=== PATIENT | male | born 1965 | race Caucasian/White ===

== ENCOUNTER 2020-09-11 18:27 | Emergency (ER) | payer MEDICAID ==
[2020-09-11] MEDS ORDERED: Sodium Chloride 0.9% 10 ML Syringe FLUSH PRN (18:45)
--- NOTE | 2020-09-11 19:21 | EDM.PDOC ---
ED HPI GENERAL MEDICAL PROBLEM - General Chief Complaint: Upper Extremity Injury/Pain Stated Complaint: RIGHT ARM PAIN Time Seen by Provider: 09/11/20 18:43 Source of Information: Reports: Patient History Limitations: Reports: No Limitations - History of Present Illness INITIAL COMMENTS - FREE TEXT/NARRATIVE: Alexander is a 55-year-old male presenting to the ED for evaluation of possible right bicep tear. Patient is a salazar and was lifting heavy items today when suddenly he had a feeling of tearing sensation and weakness in his right upper extremity with a bulge in his right bicep. 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 Denies any pain. There is a noticeable bulge in the middle of his bicep and deficit in the distal portion of the bicep. He denies any numbness or tingling. He does have noticeable weakness in this arm compared to the left. - Related Data Allergies Allergy/AdvReac Type Severity Reaction Status Date / Time No Known Allergies Allergy Verified 09/11/20 18:39 Home Meds: Home Meds Allopurinol [Zyloprim] 100 mg PO DAILY 09/11/20 [History] Cholecalciferol (Vitamin D3) [Vitamin D] 5,000 unit PO WEEKLY 09/11/20 [History] Diltiazem [Diltiazem XR] 360 mg PO DAILY 09/11/20 [History] Simvastatin 80 mg PO DAILY 09/11/20 [History] cloNIDine [cloNIDine HCl] 0.5 mg PO BID 09/11/20 [History] hydroCHLOROthiazide [Hydrochlorothiazide] 12.5 mg PO DAILY 09/11/20 [History] lisinopriL [Lisinopril] 20 mg PO WEEKLY 09/11/20 [History] traZODone 50 mg PO BEDTIME 09/11/20 [History] Past Medical History HEENT History: Reports: Impaired Vision Cardiovascular History: Reports: High Cholesterol, Hypertension Respiratory History: Reports: Sleep Apnea Musculoskeletal History: Reports: Arthritis, Back Pain, Chronic, Gout Neurological History: Reports: Concussion Endocrine/Metabolic History: Reports: Obesity/BMI 30+ - Infectious Disease History Infectious Disease History: Reports: Chicken Pox - Past Surgical History Head Surgeries/Procedures: Reports: None HEENT Surgical History: Reports: None Cardiovascular Surgical History: Reports: None Respiratory Surgical History: Reports: None Endocrine Surgical History: Reports: None Neurological Surgical History: Reports: None Musculoskeletal Surgical History: Reports: Knee Replacement, Other (See Below) Dermatological Surgical History: Reports: None Social & Family History - Tobacco Use Tobacco Use Status *Q: Current Every Day Tobacco User Years of Tobacco use: 30 Packs/Tins Daily: 0.5 Used Tobacco, but Quit: No - Caffeine Use Caffeine Use: Reports: Soda - Recreational Drug Use Recreational Drug Use: No Review of Systems - Review of Systems Review Of Systems: See Below Constitutional: Reports: No Symptoms Respiratory: Reports: No Symptoms Cardiovascular: Reports: No Symptoms GI/Abdominal: Reports: No Symptoms Musculoskeletal: Reports: Other (dB bulge in the right biceps with a deficit of the distal bicep and subjective weakness in the right arm.) Skin: Reports: No Symptoms Neurological: Reports: No Symptoms Psychiatric: Reports: No Symptoms ED EXAM, GENERAL - Physical Exam Exam: See Below Exam Limited By: No Limitations General Appearance: Alert, No Apparent Distress Neck: Normal Inspection, Supple, Non-Tender Peripheral Pulses: 2+: Radial (L), Radial (R) Extremities: Other (Noticeable bulge in the upper half of the bicep with a deficit in the lower half of the biceps on the right noticeable weakness in the right versus left upper extremity.) Neurological: Alert, Oriented, Normal Cognition, Sensory/Motor Deficit (Noticeable weakness in the right upper extremity compared to the left with flexion of the bicep) Skin Exam: Warm, Dry, Intact, Normal Color Course - Vital Signs Last Recorded V/S: Last Vital Signs Temp 36.7 C 09/11/20 18:47 Pulse 92 09/11/20 18:47 Resp 16 09/11/20 18:47 BP 160/106 H 09/11/20 18:47 Pulse Ox 94 L 09/11/20 18:47 - Orders/Labs/Meds Orders: Active Orders 24 hr Category Date Time Status Consult to Orthopedic Clinic [CONS] Routine Cons 09/11/20 19:45 Ordered Upper Extremity w Cont Rt [CT] Stat Exams 09/11/20 18:44 Stop Req Iopamidol [Isovue-300 (61%)] Med 09/11/20 19:45 Active 100 ml IV . DIRECTED Sodium Chloride 0.9% [Normal Saline] 80 ml Med 09/11/20 19:45 Active IV ASDIRECTED Sodium Chloride 0.9% [Saline Flush] Med 09/11/20 18:45 Active 10 ml FLUSH ASDIRECTED PRN Saline Lock Insert [OM.PC] Routine Oth 09/11/20 18:45 Ordered Medication Orders Sodium Chloride (Normal Saline) 80 mls @ 3 mls/sec IV ASDIRECTED RADHA Iopamidol (Iopamidol 612 Mg/Ml 100 Ml Bottle) 100 ml IV . DIRECTED RADHA Sodium Chloride (Sodium Chloride 0.9% 10 Ml Syringe) 10 ml FLUSH ASDIRECTED PRN PRN Reason: Keep Vein Open Last Admin: 09/11/20 18:56 Dose: 10 ml Documented by: MARJORIE Lynchs: Medications Generic Name Dose Route Start Last Admin Trade Name Freq PRN Reason Stop Dose Admin Sodium Chloride 80 mls @ 3 mls/sec 09/11/20 19:45 Normal Saline IV ASDIRECTED RADHA Iopamidol 100 ml 09/11/20 19:45 Iopamidol 612 Mg/Ml 100 Ml Bottle IV . DIRECTED RADHA Sodium Chloride 10 ml 09/11/20 18:45 09/11/20 18:56 Sodium Chloride 0.9% 10 Ml Syringe FLUSH 10 ml ASDIRECTED PRN Administration Keep Vein Open - Re-Assessments/Exams Free Text/Narrative Re-Assessment/Exam: 09/11/20 19:47 discussed the case with orthopedic surgery coverage, PEREZ Garcia who recommends MRI of the upper extremity which could be done on Wednesday. She will see the patient hopefully in clinic tomorrow to arrange the MRI and follow-up. We will put the patient in a simple sling with instructions to avoid use of the right arm until the evaluation is completed. Patient may take Tylenol for pain control. Consult orthopedic clinic has been placed. Departure - Departure Time of Disposition: 19:48 Disposition: Home, Self-Care 01 Clinical Impression: Traumatic partial tear of right biceps tendon Qualifiers: Encounter type: initial encounter Qualified Code(s): S46.211A - Strain of muscle, fascia and tendon of other parts of biceps, right arm, initial encounter - Discharge Information Referrals: Jr Phan D[facility] CUTTER [Primary Care Provider] - Forms: ED Department Discharge Care Plan Goals: Based on my examination today, you likely have a partial bicep tendon tear involving your right upper extremity. I discussed the case with orthopedic surgery who would see you in clinic tomorrow and schedule you for an MRI Wednesday. You will likely be scheduled for surgery early next week for repair of this if in fact that is what is going on. We are going to put you in a simple sling to rest the arm. Please avoid any lifting with the arm. You may take Tylenol or ibuprofen for pain control. Sepsis Event Note (ED) - Evaluation Sepsis Screening Result: No Definite Risk - Focused Exam Vital Signs: Vital Signs Temp Pulse Resp BP Pulse Ox 09/11/20 18:47 36.7 C 92 16 160/106 H 94 L 09/11/20 18:39 36.7 C 92 16 160/106 H 94 L - Problem List & Annotations (1) Traumatic partial tear of right biceps tendon SNOMED Code(s): 033062633 Code(s): S46.211A - STRAIN OF MUSC/FASC/TEND PRT BICEPS, RIGHT ARM, INIT Status: Acute Priority: Medium Current Visit: Yes Qualifiers: Encounter type: initial encounter Qualified Code(s): S46.211A - Strain of muscle, fascia and tendon of other parts of biceps, right arm, initial encounter - Problem List Review Problem List Initiated/Reviewed/Updated: Yes - My Orders Last 24 Hours: My Active Orders 09/11/20 18:44 Upper Extremity w Cont Rt [CT] Stat 09/11/20 18:45 Sodium Chloride 0.9% [Saline Flush] 10 ml FLUSH ASDIRECTED PRN Saline Lock Insert [OM.PC] Routine 09/11/20 19:45 Consult to Orthopedic Clinic [CONS] Routine Iopamidol [Isovue-300 (61%)] 100 ml IV . DIRECTED Sodium Chloride 0.9% [Normal Saline] 80 ml IV ASDIRECTED - Assessment/Plan Last 24 Hours: My Active Orders 09/11/20 18:44 Upper Extremity w Cont Rt [CT] Stat 09/11/20 18:45 Sodium Chloride 0.9% [Saline Flush] 10 ml FLUSH ASDIRECTED PRN Saline Lock Insert [OM.PC] Routine 09/11/20 19:45 Consult to Orthopedic Clinic [CONS] Routine Iopamidol [Isovue-300 (61%)] 100 ml IV . DIRECTED Sodium Chloride 0.9% [Normal Saline] 80 ml IV ASDIRECTED
[2020-09-11] MEDS ORDERED: Iopamidol 612 MG/ML 100 ML Bottle IV SCH (19:45)
[2020-09-11] MEDS ORDERED: Sodium Chloride 0.9% 80 ML IV SCH (19:45)
== END 2020-09-11 20:18 | disposition home or self-care (01) ==
LOC: JP.ED 18:27
DX: S46.211A Strain of muscle, fascia and tendon of other parts of biceps, right arm, initial encounter (principal); E78.00 Pure hypercholesterolemia, unspecified; I10 Essential (primary) hypertension; M10.9 Gout, unspecified; E66.9 Obesity, unspecified; Z72.0 Tobacco use; Z68.41 Body mass index [BMI] 40.0-44.9, adult; X50.9XXA Other and unspecified overexertion or strenuous movements or postures, initial encounter
CPT/HCPCS: 99283

== ENCOUNTER 2020-11-10 13:36 | Emergency (ER) | payer MEDICAID ==
--- NOTE | 2020-11-10 14:32 | EDM.PDOC ---
ED HPI GENERAL MEDICAL PROBLEM - General Chief Complaint: Diabetic Complaint Stated Complaint: HIGH BLOOD SUGARS Time Seen by Provider: 11/10/20 13:50 Source of Information: Reports: Patient, Family History Limitations: Reports: No Limitations - History of Present Illness INITIAL COMMENTS - FREE TEXT/NARRATIVE: 55-year-old male who has been told that he has "borderline diabetes" in the past but controlled his blood sugar with exercise and diet but then a few months ago ruptured his right biceps tendon and has gained some weight and has been inactive. He has been seen a couple times in the clinic for fatigue, vision changes and has been found to have high glucose again. Some lab work was done but I am unsure what that is. He is into the emergency room this weekend bec ause he found a glucometer and checked his blood glucose a couple times this weekend and it is been "high". He took his daughters metformin for two doses, and came in to be evaluated. Other than some intermittent blurry vision, dry mouth and fatigue, he has no other symptoms such as chest pain, shortness of breath, headache or fever. Onset: Unknown/Unsure Duration: Chronic Location: Reports: Generalized Improves with: Reports: None Worsens with: Reports: None Associated Symptoms: Reports: Weakness. Denies: Confusion, Chest Pain, Fever/Chills, Headaches, Nausea/Vomiting, Shortness of Breath - Related Data Allergies Allergy/AdvReac Type Severity Reaction Status Date / Time No Known Allergies Allergy Verified 11/10/20 13:57 Home Meds: Home Meds Cholecalciferol (Vitamin D3) [Vitamin D] 5,000 unit PO WEEKLY 09/11/20 [History] Diltiazem [Diltiazem XR] 360 mg PO DAILY 09/11/20 [History] Simvastatin 80 mg PO DAILY 09/11/20 [History] allopurinoL [Zyloprim] 100 mg PO DAILY 09/11/20 [History] cloNIDine [cloNIDine HCl] 0.5 mg PO BID 09/11/20 [History] hydroCHLOROthiazide [Hydrochlorothiazide] 12.5 mg PO DAILY 09/11/20 [History] lisinopriL [Lisinopril] 20 mg PO BID 09/11/20 [History] traZODone 50 mg PO BEDTIME 09/11/20 [History] Aspirin 81 mg PO DAILY 09/13/20 [History] Cyclobenzaprine [Flexeril] 10 mg PO TID PRN 09/16/20 [History] Multivitamin with Minerals [Multiple Vitamin] 1 tab PO DAILY 09/16/20 [History] Omeprazole 20 mg PO DAILY 09/16/20 [History] Tamsulosin [Tamsulosin 24 Hr] 0.4 mg PO DAILY 09/16/20 [History] metFORMIN [Glucophage] 500 mg PO TIDMEALS 10 Days #30 tab 11/10/20 [Rx] Past Medical History HEENT History: Reports: Impaired Vision Cardiovascular History: Reports: High Cholesterol, Hypertension Respiratory History: Reports: Sleep Apnea Musculoskeletal History: Reports: Arthritis, Back Pain, Chronic, Gout, Other (See Below) Other Musculoskeletal History: R bicep tear 09/11/20 Neurological History: Reports: Concussion Endocrine/Metabolic History: Reports: Obesity/BMI 30+ - Infectious Disease History Infectious Disease History: Reports: Chicken Pox - Past Surgical History Head Surgeries/Procedures: Reports: None HEENT Surgical History: Reports: None Cardiovascular Surgical History: Reports: None Respiratory Surgical History: Reports: None Endocrine Surgical History: Reports: None Neurological Surgical History: Reports: None Musculoskeletal Surgical History: Reports: Knee Replacement, Other (See Below) Other Musculoskeletal Surgeries/Procedures:: rt bicep repair 09/18/20 Dermatological Surgical History: Reports: None Social & Family History - Tobacco Use Tobacco Use Status *Q: Current Every Day Tobacco User Years of Tobacco use: 30 Packs/Tins Daily: 0.5 - Caffeine Use Caffeine Use: Reports: Soda ED ROS GENERAL - Review of Systems Review Of Systems: See Below Constitutional: Denies: Fever, Chills HEENT: Reports: Other (Thirsty, dry mouth) Respiratory: Denies: Shortness of Breath, Cough Musculoskeletal: Reports: No Symptoms Skin: Reports: No Symptoms Neurological: Reports: Headache. Denies: Dizziness Psychiatric: Reports: No Symptoms ED EXAM GENERAL NO PERIP PULSE - Physical Exam Exam: See Below Exam Limited By: No Limitations General Appearance: Alert, No Apparent Distress Eye Exam: Bilateral Eye: EOMI, PERRL Throat/Mouth: Normal Inspection Respiratory/Chest: No Respiratory Distress, Lungs Clear Cardiovascular: Regular Rate, Rhythm GI/Abdominal: Soft, Non-Tender, Other (Moderately obese) Extremities: No: Pedal Edema Neurological: Alert, Oriented Psychiatric: Normal Affect, Normal Mood Skin Exam: Warm, Dry Course - Vital Signs Last Recorded V/S: Last Vital Signs Temp 97.2 F 11/10/20 14:07 Pulse 96 11/10/20 14:07 Resp 14 11/10/20 14:07 BP 130/85 11/10/20 14:07 Pulse Ox 96 11/10/20 14:07 - Orders/Labs/Meds Labs: Laboratory Tests 11/10/20 11/10/20 Range/Units 14:44 14:44 WBC 9.8 (4.5-11.0) K/uL RBC 4.86 (4.30-5.90) M/uL Hgb 15.5 H (12.0-15.0) g/dL Hct 43.9 (40.0-54.0) % MCV 90 (80-98) fL MCH 32 H (27-31) pg MCHC 35 (32-36) % Plt Count 283 (150-400) K/uL Neut % (Auto) 54.9 (36-66) % Lymph % (Auto) 33.1 (24-44) % [place] % (Auto) 6.4 H (2-6) % Eos % (Auto) 4.6 H (2-4) % Baso % (Auto) 1.0 (0-1) % Sodium 129 L (140-148) mmol/L Potassium 6.1 H* (3.6-5.2) mmol/L Chloride 91 L (100-108) mmol/L Carbon Dioxide 27 (21-32) mmol/L Anion Gap 17.1 H (5.0-14.0) mmol/L BUN 31 H (7-18) mg/dL Creatinine 1.7 H (0.8-1.3) mg/dL Est Cr Clr Drug Dosing 49.50 mL/min Estimated GFR (MDRD) 42 L (>60) Glucose 536 H* (74-106) mg/dL Calcium 10.2 H (8.5-10.1) mg/dL - Re-Assessments/Exams Free Text/Narrative Re-Assessment/Exam: 11/10/20 19:05 Clinic records were reviewed as hemoglobin A1c drawn 10 days ago was over 10. Current glucose returned at 536 and potassium was 6.1. 11/10/20 19:05 Explained to the patient the best course of action would be to hospitalize him, start some insulin and calorie control and get his diabetes somewhat under control. He refused hospitalization at this time however and insisted on starting Metformin. He was given 10 days of his own prescription at 500 mg 3 times a day, and is going to call his primary provider in the next day or 2 to establish a recheck. Departure - Departure Time of Disposition: 15:47 Disposition: Home, Self-Care 01 Clinical Impression: Hyperglycemia - Discharge Information Prescriptions: metFORMIN [Glucophage] 500 mg PO TIDMEALS 10 Days #30 tab Instructions: Type 2 Diabetes Mellitus, Diagnosis, Adult, [id number] Referrals: Jr Phan, TECH[employer] SAL[employer]IST [Primary Care Provider] - Forms: ED Department Discharge Care Plan Goals: Call the clinic tomorrow for an appointment later this week to discuss your type 2 diabetes and further evaluation and care with Jr Phan. Take the Metformin as prescribed starting today and avoid extra glucose intake such as sugary foods until you get more education on diet control. It is very possible you may need short-term insulin treatment and possibly short-term hospitalization if not improving satisfactorily over the next 1 to 2 weeks. Sepsis Event Note (ED) - Evaluation Sepsis Screening Result: No Definite Risk - Focused Exam Vital Signs: Vital Signs Temp Pulse Resp BP Pulse Ox 11/10/20 14:07 97.2 F 96 14 130/85 96
== END 2020-11-10 15:48 | disposition home or self-care (01) ==
LOC: JP.ED 13:36
DX: R73.9 Hyperglycemia, unspecified (principal); E78.00 Pure hypercholesterolemia, unspecified; I10 Essential (primary) hypertension; M10.9 Gout, unspecified; E66.9 Obesity, unspecified; Z68.37 Body mass index [BMI] 37.0-37.9, adult; Z79.899 Other long term (current) drug therapy; Z72.0 Tobacco use; Z79.82 Long term (current) use of aspirin
CPT/HCPCS: 36415; 80048; 85025; 99284

== ENCOUNTER 2024-12-29 10:44 | Emergency (ER) | payer MEDICAID | END 2024-12-29 11:48 | disposition home or self-care (01) | LOC: JP.ED 10:44 | DX: L03.115 Cellulitis of right lower limb (principal); I10 Essential (primary) hypertension; M19.90 Unspecified osteoarthritis, unspecified site; E78.00 Pure hypercholesterolemia, unspecified; E66.9 Obesity, unspecified; Z79.82 Long term (current) use of aspirin; Z79.84 Long term (current) use of oral hypoglycemic drugs; Z79.899 Other long term (current) drug therapy; Z79.01 Long term (current) use of anticoagulants; Z68.38 Body mass index [BMI] 38.0-38.9, adult | CPT/HCPCS: 99282 ==